=== PATIENT | female | born 1945 | race Caucasian/White ===

== ENCOUNTER 2016-11-17 12:29 | Outpatient (CLI) | payer MEDICARE, OTHER ==
[2014-06-11 12:07] VITALS: BMI 30.6
[~2016-11-17 12:29] MED LIST: GORDON'S VITE480 G1 TP; TOPROL XL25 MG PO; VITAMIN A10000 UNIT PO; VITAMIN D2000 UNIT PO
== END 2016-11-17 23:59 | disposition home or self-care (01) ==
LOC: D.MAMMO 12:29
DX: Z12.31 Encounter for screening mammogram for malignant neoplasm of breast (principal)

== ENCOUNTER → 2018-06-06 17:01 | Outpatient (CLI) | payer MEDICARE, OTHER ==
[2014-06-11 12:07] VITALS: BMI 30.6
== END | disposition home or self-care (01) ==
LOC: D.MAMMO 09:00
DX: M85.80 Other specified disorders of bone density and structure, unspecified site (principal)

== ENCOUNTER → 2018-07-12 20:17 | Outpatient (CLI) | payer MEDICARE, OTHER ==
[2014-06-11 12:07] VITALS: BMI 30.6
== END | disposition home or self-care (01) ==
LOC: D.MAMMO 15:00
DX: R92.8 Other abnormal and inconclusive findings on diagnostic imaging of breast (principal)